=== PATIENT | male | born 1980 | race Caucasian/White ===

== ENCOUNTER 2018-05-18 19:06 | Emergency (ER) | payer SELFPAY ==
[2018-05-18] MEDS ORDERED: Sodium Chloride 0.9% 10 ML Syringe FLUSH PRN (19:34)
[2018-05-18] MEDS ORDERED: Clindamycin Phosphate 600 MG in Sodium Chloride 0.9% 100 ML IV ONE (19:36)
[2018-05-18] MEDS ORDERED: HYDROmorphone 1 MG/ML Syringe IVPUSH ONE (19:37)
--- NOTE | 2018-05-18 19:39 | EDM.PDOC ---
ED HPI GENERAL MEDICAL PROBLEM - General Chief Complaint: Allergic Reaction Stated Complaint: SWELLING FROM INJECTION Time Seen by Provider: 05/18/18 19:15 Source of Information: Reports: Patient History Limitations: Reports: No Limitations - History of Present Illness INITIAL COMMENTS - FREE TEXT/NARRATIVE: The patient presents with swelling to his face and a sore throat. He said this all started last week Wednesday of last week. He had a sore throat then like he was swallowing razor blades. He did not have much of a fever. He then noticed some white patches on his tonsils and noticed some redness and swelling to his right upper eyelid. This redness has moved to the right cheek and left cheek. He went to see his provider today and she confirmed he has strep and gave him a shot of penicillin G and some prednisone for the swelling. He went home and now he has low back pain and a fever now. He is very congested and has sinus pressure. He cannot get any mucus from his nose. It comes out the oropharynx. He has no chest pain or shortness of breath. He has no nausea or vomiting. Onset: Gradual Duration: Day(s): Location: Reports: Face (and throat), Back Quality: Reports: Sharp Severity: Moderate Improves with: Reports: None Worsens with: Reports: None Associated Symptoms: Reports: Fever/Chills, Headaches. Denies: Chest Pain, Cough, Nausea/Vomiting, Shortness of Breath Throat Pain Score (Numeric/FACES): 4 - Related Data Allergies Allergy/AdvReac Type Severity Reaction Status Date / Time No Known Allergies Allergy Verified 05/18/18 19:46 Home Meds: Home Meds ALPRAZolam [Xanax] 1 mg PO Q6HR PRN 05/18/18 [History] Albuterol [Ventolin HFA] 1 puff INH Q4HR PRN 05/18/18 [History] Clindamycin HCl 450 mg PO TID #90 capsule 05/18/18 [Rx] Fluticasone/Vilanterol [Breo Ellipta 200-25 Mcg INH] 1 puff INH BID 05/18/18 [ History] Hydrocodone/Acetaminophen [Hydrocodon-Acetaminophen 5-325] 1 - 2 each PO Q6HR PRN #10 tablet 05/18/18 [Rx] ED ROS ALLERGIC REACTION - Review of Systems Review Of Systems: See Below Constitutional: Reports: Fever, Chills HEENT: Reports: Other (Congestion and sinus pressure) Respiratory: Reports: No Symptoms Cardiovascular: Reports: No Symptoms Endocrine: Reports: No Symptoms GI/Abdominal: Reports: No Symptoms : Reports: No Symptoms Musculoskeletal: Reports: No Symptoms Skin: Reports: Other (Redness and swelling to his face) ED EXAM GENERAL NO PERIP PULSE - Physical Exam Exam: See Below Exam Limited By: No Limitations General Appearance: Alert, No Apparent Distress Eye Exam: Bilateral Eye: EOMI, Periorbital Changes (Redness and swelling of the right upper eyelid) Ears: Normal External Exam Nose: Normal Inspection Throat/Mouth: Other (Tinsillar erythema and edema) Head: Atraumatic, Normocephalic Neck: Lymphadenopathy (L), Lymphadenopathy (R) Respiratory/Chest: No Respiratory Distress, Lungs Clear, Normal Breath Sounds Cardiovascular: Regular Rate, Rhythm, No Edema, No Murmur GI/Abdominal: Soft, Non-Tender, No Organomegaly, No Mass Back Exam: Normal Inspection Extremities: Normal Inspection Neurological: Alert, Oriented, No Motor/Sensory Deficits Course - Vital Signs Last Recorded V/S: Last Vital Signs Temp 98.8 F 05/18/18 19:13 Pulse 126 H 05/18/18 19:13 Resp 20 05/18/18 19:13 BP 149/102 H 05/18/18 19:13 Pulse Ox 97 05/18/18 19:13 - Orders/Labs/Meds Orders: Active Orders 24 hr Category Date Time Status Cardiac Monitoring [RC] . DIRECTED Care 05/18/18 19:35 Active Peripheral IV Care [RC] . DIRECTED Care 05/18/18 19:35 Active CULTURE BLOOD [BC] Stat Lab 05/18/18 20:15 Received CULTURE BLOOD [BC] Stat Lab 05/18/18 20:25 Received Sodium Chloride 0.9% [Normal Saline] 1,000 ml Med 05/18/18 19:45 Active IV .BOLUS Sodium Chloride 0.9% [Saline Flush] Med 05/18/18 19:34 Active 10 ml FLUSH ASDIRECTED PRN Blood Culture x2 Reflex Set [OM.PC] Stat Oth 05/18/18 19:36 Ordered Peripheral IV Insertion Adult [OM.PC] Stat Oth 05/18/18 19:34 Ordered Medication Orders Sodium Chloride (Normal Saline) 1,000 mls @ 1,000 mls/hr IV .BOLUS LETICIA Last Admin: 05/18/18 20:30 Dose: 1,000 mls/hr Sodium Chloride (Saline Flush) 10 ml FLUSH ASDIRECTED PRN PRN Reason: Keep Vein Open Last Admin: 05/18/18 20:32 Dose: 10 ml Labs: Laboratory Tests 05/18/18 05/18/18 05/18/18 Range/Units 19:25 19:25 19:25 WBC 11.55 H (4.23-9.07) K/mm3 RBC 4.93 (4.63-6.08) M/mm3 Hgb 16.3 (13.7-17.5) gm/L Hct 46.8 (40.1-51.0) % MCV 94.9 H (79.0-92.2) fl MCH 33.1 H (25.7-32.2) pg MCHC 34.8 (32.2-35.5) g/dl RDW Std Deviation 44.5 H (35.1-43.9) fL Plt Count 214 (163-337) K/mm3 MPV 11.2 (9.4-12.3) fl Neut % (Auto) 86.5 H (34.0-67.9) % Lymph % (Auto) 6.6 L (21.8-53.1) % [place] % (Auto) 6.1 (5.3-12.2) % Eos % (Auto) 0.2 L (0.8-7.0) Baso % (Auto) 0.3 (0.1-1.2) % Neut # (Auto) 10.00 H (1.78-5.38) K/mm3 Lymph # (Auto) 0.76 L (1.32-3.57) K/mm3 [place] # (Auto) 0.71 (0.30-0.82) K/mm3 Eos # (Auto) 0.02 L (0.04-0.54) K/mm3 Baso # (Auto) 0.03 (0.01-0.08) K/mm3 Manual Slide Review Normal smear Sodium 136 (136-145) mEq/L Potassium 3.7 (3.5-5.1) mEq/L Chloride 100 (98-107) mEq/L Carbon Dioxide 24 (21-32) mEq/L Anion Gap 15.7 H (5-15) BUN 9 (7-18) mg/dL Creatinine 1.1 (0.7-1.3) mg/dL Est Cr Clr Drug Dosing 81.36 mL/min Estimated GFR (MDRD) > 60 (>60) mL/min BUN/Creatinine Ratio 8.2 L (14-18) Glucose 157 H (74-106) mg/dL Lactic Acid (0.4-2.0) mmol/L Calcium 9.6 (8.5-10.1) mg/dL Total Bilirubin 0.6 (0.2-1.0) mg/dL AST 80 H (15-37) U/L ALT 228 H (16-63) U/L Alkaline Phosphatase 103 (46-116) U/L C-Reactive Protein 10.5 H* (<1.0) mg/dL Total Protein 8.4 H (6.4-8.2) g/dl Albumin 4.1 (3.4-5.0) g/dl Globulin 4.3 gm/dL Albumin/Globulin Ratio 1.0 (1-2) Monoscreen Negative (NEGATIVE) 05/18/18 Range/Units 20:15 WBC (4.23-9.07) K/mm3 RBC (4.63-6.08) M/mm3 Hgb (13.7-17.5) gm/L Hct (40.1-51.0) % MCV (79.0-92.2) fl MCH (25.7-32.2) pg MCHC (32.2-35.5) g/dl RDW Std Deviation (35.1-43.9) fL Plt Count (163-337) K/mm3 MPV (9.4-12.3) fl Neut % (Auto) (34.0-67.9) % Lymph % (Auto) (21.8-53.1) % [place] % (Auto) (5.3-12.2) % Eos % (Auto) (0.8-7.0) Baso % (Auto) (0.1-1.2) % Neut # (Auto) (1.78-5.38) K/mm3 Lymph # (Auto) (1.32-3.57) K/mm3 [place] # (Auto) (0.30-0.82) K/mm3 Eos # (Auto) (0.04-0.54) K/mm3 Baso # (Auto) (0.01-0.08) K/mm3 Manual Slide Review Sodium (136-145) mEq/L Potassium (3.5-5.1) mEq/L Chloride (98-107) mEq/L Carbon Dioxide (21-32) mEq/L Anion Gap (5-15) BUN (7-18) mg/dL Creatinine (0.7-1.3) mg/dL Est Cr Clr Drug Dosing mL/min Estimated GFR (MDRD) (>60) mL/min BUN/Creatinine Ratio (14-18) Glucose (74-106) mg/dL Lactic Acid 1.2 (0.4-2.0) mmol/L Calcium (8.5-10.1) mg/dL Total Bilirubin (0.2-1.0) mg/dL AST (15-37) U/L ALT (16-63) U/L Alkaline Phosphatase (46-116) U/L C-Reactive Protein (<1.0) mg/dL Total Protein (6.4-8.2) g/dl Albumin (3.4-5.0) g/dl Globulin gm/dL Albumin/Globulin Ratio (1-2) Monoscreen (NEGATIVE) Meds: Medications Generic Name Dose Route Start Last Admin Trade Name Freq PRN Reason Stop Dose Admin Sodium Chloride 1,000 mls @ 1,000 mls/hr 05/18/18 19:45 05/18/18 20:30 Normal Saline IV 1,000 mls/hr .BOLUS LETICIA Administration Sodium Chloride 10 ml 05/18/18 19:34 05/18/18 20:32 Saline Flush FLUSH 10 ml ASDIRECTED PRN Administration Keep Vein Open Discontinued Medications Generic Name Dose Route Start Last Admin Trade Name Freq PRN Reason Stop Dose Admin Hydromorphone HCl 0.5 mg 05/18/18 19:37 05/18/18 19:53 Dilaudid IVPUSH 05/18/18 19:38 0.5 mg ONETIME ONE Administration Clindamycin Phosphate 600 mg/ 104 mls @ 100 mls/hr 05/18/18 19:36 05/18/18 19 :50 Sodium Chloride IV 05/18/18 20:38 100 mls/hr ONETIME ONE Administration Iopamidol 100 ml 05/18/18 20:07 05/18/18 20:13 Isovue-370 (76%) IV 05/18/18 20:08 100 ml ONETIME ONE Administration Iopamidol 100 ml 05/18/18 20:11 Isovue-370 (76%) IV 05/18/18 20:12 ONETIME ONE - Re-Assessments/Exams Free Text/Narrative Re-Assessment/Exam: 05/18/18 19:52 I ordered an IV NS 1L bolus, dilaudid 0.5mg IV, clindamycin 600mg IV, CT of his maxillofacial bones, labs, and blood cultures. 05/18/18 21:36 His WBC was elevated at 11.55. His lactic acid was normal. His AST was elevated at 80. His ALT was elevated at 228. His CRP was elevated at 10.5. His mono was negative. His CT shows soft tissue swelling within the right anterior periorbital region and upper right cheek. No involvement posterior to the anterior preseptal region is seen. No abscess is seen. Multiple lymph nodes within the neck on both sides most likely reactive. Recommend close clinical follow-up to make sure these lymph nodes do not increase in size. If further clinical questions remain. Recommend repeat CT study in 4 months. The patient feels better. I will discharge him on some clindamycin 450mg TID and something for pain. Departure - Departure Time of Disposition: 21:45 Disposition: Home, Self-Care 01 Condition: Good Clinical Impression: Strep tonsillitis, Cellulitis of periorbital region of both eyes - Discharge Information *PRESCRIPTION DRUG MONITORING PROGRAM REVIEWED*: No *COPY OF PRESCRIPTION DRUG MONITORING REPORT IN PATIENT SLIME: No Prescriptions: Hydrocodone/Acetaminophen [Hydrocodon-Acetaminophen 5-325] 1 - 2 each PO Q6HR PRN #10 tablet PRN Reason: Pain Clindamycin HCl 450 mg PO TID #90 capsule Referrals: PCP,None [Primary Care Provider] - Yasmin Vázquez PA-C [Physician [facility] [employer] [facility]] - 1 Week Forms: ED Department Discharge Additional Instructions: Take the clindamycin 450mg 3 times per day for 10 days. Put warm compresses on your face 3 times per day for 5 days. Drink plenty of fluids. Take tylenol or motrin for any fever. Take the hydrocodone for any pain. Sleep with your head up for a few days. Please return if you are worse. - My Orders Last 24 Hours: My Active Orders 05/18/18 19:34 Sodium Chloride 0.9% [Saline Flush] 10 ml FLUSH ASDIRECTED PRN Peripheral IV Insertion Adult [OM.PC] Stat 05/18/18 19:35 Cardiac Monitoring [RC] . DIRECTED Peripheral IV Care [RC] . DIRECTED 05/18/18 19:36 Blood Culture x2 Reflex Set [OM.PC] Stat 05/18/18 19:45 Sodium Chloride 0.9% [Normal Saline] 1,000 ml IV .BOLUS 05/18/18 20:15 CULTURE BLOOD [BC] Stat 05/18/18 20:25 CULTURE BLOOD [BC] Stat - Assessment/Plan Last 24 Hours: My Active Orders 05/18/18 19:34 Sodium Chloride 0.9% [Saline Flush] 10 ml FLUSH ASDIRECTED PRN Peripheral IV Insertion Adult [OM.PC] Stat 05/18/18 19:35 Cardiac Monitoring [RC] . DIRECTED Peripheral IV Care [RC] . DIRECTED 05/18/18 19:36 Blood Culture x2 Reflex Set [OM.PC] Stat 05/18/18 19:45 Sodium Chloride 0.9% [Normal Saline] 1,000 ml IV .BOLUS 05/18/18 20:15 CULTURE BLOOD [BC] Stat 05/18/18 20:25 CULTURE BLOOD [BC] Stat
[2018-05-18] MEDS ORDERED: Sodium Chloride 0.9% 1,000 ML IV SCH (19:45)
[2018-05-18] MEDS ORDERED: Iopamidol 755 Mg/ML 200 ML Bottle IV ONE ×2 (20:07→20:11)
--- NOTE | 2018-05-18 20:33 | CT ---
CT maxillofacial Technique: Multiple axial sections were obtained from inferiorly below the mandible superiorly to above the frontal sinuses. Intravenous contrast was utilized. Findings: Soft tissue swelling noted within the upper right cheek and within portions of the right anterior periorbital soft tissues. Right and left globes are symmetric. Extraocular muscles are unremarkable. Optic nerves are symmetric and unremarkable. Retrobulbar fat is preserved. No fluid collections of abscess are seen. Multiple lymph nodes are seen within the neck on both sides presumably reactive from the infection. Submandibular and parotid salivary glands are unremarkable. Normal enhancing vascular structures are seen. Minimal areas of mucosal thickening are seen within both maxillary and ethmoid sinuses as well as minimal mucosal thickening within the frontal sinus which likely is due to pre-existing mild chronic sinusitis. Impression: 1. Soft tissue swelling within the right anterior periorbital region and upper right cheek. No involvement posterior to the anterior preseptal region is seen. No abscess is seen. 2. Multiple lymph nodes within the neck on both sides most likely reactive. Recommend close clinical follow-up to make sure these lymph nodes do not increase in size. If any further clinical questions remain, recommend repeat CT study in 4 months. 3. Mild there is mucosal thickening likely due to mild pre-existing chronic sinusitis. Diagnostic code #3
== END 2018-05-18 21:55 | disposition home or self-care (01) ==
LOC: JD.ED 19:06
DX: J03.00 Acute streptococcal tonsillitis, unspecified (principal); L03.213 Periorbital cellulitis; Z79.899 Other long term (current) drug therapy
CPT/HCPCS: 36415; 70487; 80053; 83605; 85025; 86140; 86308; 87040; 96361; 96365; 96375; 99284; J1170; J3490; J7030; J7040; Q9967

== ENCOUNTER 2024-07-09 07:27 | Emergency (ER) | payer OTHER ==
[2024-07-09] MEDS: Sodium Chloride 0.9% 1,000 ML IV ONE (07:46)
[2024-07-09] MEDS: Ondansetron 4 MG/2 ML SDV IVPUSH ONE (07:49)
[2024-07-09] MEDS: LORazepam 2 MG/ML SDV IVPUSH ONE (07:49)
[2024-07-09] MEDS: Pantoprazole 40 MG Vial IVPUSH ONE (07:49)
[2024-07-09] MEDS: Acetaminophen 325 MG Tab PO ONE (07:50)
[2024-07-09] MEDS: Morphine 4 MG/ML Syringe IVPUSH ONE (08:02)
[2024-07-09] MEDS: Nitroglycerin 0.4 MG Tab.SL SL PRN (08:02)
[2024-07-09 08:05] LABS: BASOPHILS ABSOLUTE AUTO 0.1 K/mm3 (0.0-0.2); BASOPHILS PERCENT AUTO 0.8 % (0.0-1.0); EOSINOPHILS ABSOLUTE AUTO 0.2 K/mm3 (0.0-0.4); EOSINOPHILS PERCENT AUTO 1.6 % (0.0-6.0); HEMATOCRIT 45.2 % (42.0-52.0); HEMOGLOBIN 15.4 gm/dl (14.0-18.0); IMMATURE GRAN ABSOLUTE AUTO 0.08 K/mm3 (0.00-0.05); IMMATURE GRAN PERCENT AUTO 0.6 % (0.0-0.4); LYMPHOCYTES ABSOLUTE AUTO 1.4 K/mm3 (1.0-4.8); LYMPHOCYTES PERCENT AUTO 10.5 % (24.0-44.0); MEAN CORPUSCULAR HGB CONC 34.1 g/dl (32.0-36.0); MEAN CORPUSCULAR VOLUME 91.1 fl (83.0-99.0); MEAN PLATELET VOLUME 10.6 fl (9.4-12.4); MONOCYTES ABSOLUTE AUTO 0.9 K/mm3 (0.0-0.8); MONOCYTES PERCENT AUTO 6.6 % (0.0-8.0); NEUTROPHILS ABSOLUTE AUTO 10.3 K/mm3 (1.8-7.7); NEUTROPHILS PERCENT AUTO 79.9 % (41.0-71.0); PLATELET COUNT,PLT 192 K/mm3 (150-400); RED BLOOD CELL COUNT 4.96 M/mm3 (4.52-5.90)
[2024-07-09] MEDS: Morphine 4 MG/ML Syringe ONE (08:05)
[2024-07-09] MEDS: LORazepam 2 MG/ML SDV IVPUSH PRN (08:11)
[2024-07-09] MEDS: Heparin Sodium 5,000 Units/ML Vial IVPUSH ONE (08:11)
[2024-07-09] MEDS: Heparin Sodium/D5W 250 ML IV SCH (08:13)
[2024-07-09 08:18] LABS: HEMOGLOBIN A1C 5.7 %
[2024-07-09] MEDS: Nitroglycerin 0.3 MG Tab.SL SL ONE (08:19)
[2024-07-09] MEDS ORDERED: Nitroglycerin 0.4 MG Tab.SL SL PRN (08:20)
[2024-07-09] MEDS: Nitroglycerin/D5W 25 MG/250 ML BOTTLE IV SCH (08:23)
[2024-07-09 08:27] LABS: INR 0.98; PROTHROMBIN TIME 10.4 SECONDS (9.7-12.0)
[2024-07-09 08:39] LABS: A/G RATIO 1.2 (1-2); ALBUMIN 3.8 g/dl (3.4-5.0); ANION GAP 17.1 (5-15); BILIRUBIN TOTAL 0.2 mg/dL (0.2-1.0); BUN/CREATININE RATIO 11.3 (14-18); CALCIUM 8.6 mg/dL (8.5-10.1); CREATININE 0.8 mg/dL (0.7-1.3); EST CRCL DRUG DOSING (CG) 105.23 mL/min; MAGNESIUM 1.6 mg/dL (1.8-2.4); POTASSIUM,K 4.1 mEq/L (3.5-5.1); PROTEIN TOTAL,TP 7.1 g/dl (6.4-8.2)
[2024-07-09 08:49] LABS: TSH 2.734 uIU/mL (0.358-3.74)
[2024-07-09 08:55] LABS: BARBITURATE SCREEN,URINE NEGATIVE (CUTOFF=200); BENZODIAZEPINES SCREEN,URINE NEGATIVE (CUTOFF=150); BUPRENORPHINE SCREEN,URINE NEGATIVE (CUTOFF=10); METHADONE SCREEN, URINE NEGATIVE (CUT0FF=200); METHAMPHETAMINES SCREEN, URINE NEGATIVE (CUTOFF=500); OXYCODONE SCREEN,URINE NEGATIVE (CUT0FF=100); THC SCREEN,URINE 20 NG/ML PRESUMPTIVE POSITIVE (CUTOFF=50)
[2024-07-09 09:08] LABS: AMPHETAMINES SCREEN, URINE NEGATIVE (CUTOFF=500)
== END 2024-07-09 08:37 ==
LOC: JD.ED 07:27
DX: R07.9 Chest pain, unspecified (principal); Z82.49 Family history of ischemic heart disease and other diseases of the circulatory system; Z79.899 Other long term (current) drug therapy
CPT/HCPCS: 36415; 71045; 80053; 80061; 80306; 80307; 82550; 83036; 83690; 83735; 83880; 84443; 84484; 85025; 85610; 85730; 93005; 96365; 96375; 96376; 99285; A9270; J1644; J2060; J2270; J2305; J2405; J2470; J7030; 93010